=== PATIENT | male | born 1955 | race Caucasian/White ===

== ENCOUNTER → 2021-06-26 10:27 | Outpatient (CLI) | payer MEDICARE, SELFPAY ==
--- NOTE | ~2021-06-26 | CT_ITS ---
EXAMINATION: CT soft tissue neck w con DATE: 06/26/2021 11:04 INDICATION: Sialadenitis, unspecified. Right neck lump. TECHNIQUE: Computed tomography (CT) of the neck was performed with 75 mL Omnipaque-350 intravenous co ntrast. Automated exposure control and iterative reconstruction technique were employed. The dose-rocky gth product was 381.46 mGy-cm. COMPARISON: None FINDINGS: There is mild emphysema. There are likely changes of ocular lens replacement surgeries. The re is a skin marker superficial to right submandibular gland. There is no abnormal mass or lymphadeno jojo. There is a 3 mm sialolith in right mandibular gland. There is 0% stenosis in the proximal inte rnal carotid arteries relative to normal distal artery lumen diameters. There is severe cervical spon dylosis. IMPRESSION: 1. 3 mm sialolith in right submandibular gland. Reviewed, dictated and finalized at location A. [employer]
[2021-06-26 10:53] LABS: Estimated Glomerular Filt Rate > 60
== END ==
PROVIDERS: Visit Provider Otolaryngology
DX: K11.20 Sialoadenitis, unspecified (principal)
CPT/HCPCS: 70491; Q9967